=== PATIENT | female | born 1980 | race Caucasian/White ===

== ENCOUNTER 2016-12-14 08:07 | Day surgery (SDC) | payer OTHER ==
[~2016-12-14] VITALS: Ht 165.1 cm; Wt 122.6 kg
[2016-12-14] VITALS (10 sets, daily range): BP systolic 114–139; BP diastolic 71–86; PULSE 64–88; TEMP 97.6–98.3
[2016-12-14] MEDS ORDERED: MOTRIN 800800 MG/TAB PO (09:47)
[2016-12-14] MEDS ORDERED: PERCOCET 325 MG1 TA2 PO (09:47)
[2016-12-14 12:43] LABS: PH 5 (5-8); SQUAMOUS EPITHELIAL 0-2 /hpf; URINE APPEARANCE Turbid; URINE BACTERIA None Seen /hpf; URINE BILIRUBIN Negative (NEGATIVE); URINE BLOOD 1+ (NEGATIVE); URINE COLOR Yellow; URINE GLUCOSE Negative (NEGATIVE); URINE KETONE Negative (NEGATIVE); URINE UROBILINOGEN Negative (NEGATIVE); URINE WBC None Seen /hpf
== END 2016-12-14 21:00 | disposition home or self-care (01) ==
LOC: SDCO 08:07 → OB 13:06 → SDCO 21:00
PROVIDERS: Obstetrics & Gynecology
DX: N92.0 Excessive and frequent menstruation with regular cycle (principal); F17.210 Nicotine dependence, cigarettes, uncomplicated; K21.9 Gastro-esophageal reflux disease without esophagitis; E66.01 Morbid (severe) obesity due to excess calories; Z68.42 Body mass index [BMI] 45.0-49.9, adult; Z80.3 Family history of malignant neoplasm of breast; Z80.49 Family history of malignant neoplasm of other genital organs; Z83.3 Family history of diabetes mellitus; Z83.49 Family history of other endocrine, nutritional and metabolic diseases; Z82.49 Family history of ischemic heart disease and other diseases of the circulatory system
CPT/HCPCS: OP; A4315; J0690; J1100; J1885; J2270; J2405; J2704; J2710; J3010; J7120